=== PATIENT | female | born 1950 | race Caucasian/White ===

== ENCOUNTER 2018-11-18 10:28 | Outpatient (CLI) | payer MEDICARE ==
--- NOTE | 2018-11-18 11:26 | MMO ---
Bilateral MAMMO Bilat Screen [facility]. CLINICAL HISTORY: Patient is 68 years old and is seen for screening. The patient has no family history of breast cancer. The patient has no personal history of cancer. The patient has a history of bilateral Implants in 2008 - benign, bilateral Breast reduction in 2008 - benign, bilateral Implants in 1975 - benign - replaced several times over the years. and left Excisional Biopsy - benign. VIEWS: The views performed were: bilateral craniocaudal with tomosynthesis; bilateral mediolateral oblique with tomosynthesis; and bilateral Implant displaced. FILMS COMPARED: The present examination has been compared to prior imaging studies performed at [facility] on 09/17/2012, and at [facility] on 08/07/2005 and 06/06/2009. MAMMOGRAM FINDINGS: There are scattered fibroglandular densities. There are stable benign appearing calcifications seen in both breasts. There are no suspicious masses, suspicious calcifications, or new areas of architectural distortion. IMPRESSION: THERE IS NO MAMMOGRAPHIC EVIDENCE OF MALIGNANCY. A ROUTINE FOLLOW-UP MAMMOGRAM IN 1 YEAR IS RECOMMENDED. THE RESULTS OF THIS EXAM WERE SENT TO THE PATIENT. ACR BI-RADS Category 2 - Benign finding MAMMOGRAPHY NOTE: 1. A negative mammogram report should not delay a biopsy if a dominant of clinically suspicious mass is present. 2. Approximately 10% to 15% of breast cancers are not detected by mammography. 3. Adenosis and dense breasts may obscure an underlying neoplasm.
--- NOTE | 2018-11-18 11:45 | BD ---
DEXA BONE DENSITY EXAM: COMPARISON: 02/03/2017. HISTORY: A 68-year-old postmenopausal female for screening. FINDINGS: Lumbar Spine: BMD (g/cm2) L1 0.899 T-Score: -0.8 L2 0.924 T-Score: -0.9 L3 1.216 T-Score: 1.2 L4 1.403 T-Score: 3.1 L1-L4 1.095 T-Score: 0.4 Femoral Neck: 0.713 T-Score: -1.2 Total Femur: 0.831 T-Score: -0.9 Impression: Osteopenia. The patient has a 10-year WHO fracture risk of a major osteoporotic fracture of 7.9% and of a hip fracture of 0.8%. POS: ELOY
== END 2018-11-18 10:29 | disposition home or self-care (01) ==
LOC: BICMAMMO 10:28
DX: Z12.31 Encounter for screening mammogram for malignant neoplasm of breast (principal); Z78.0 Asymptomatic menopausal state; Z13.820 Encounter for screening for osteoporosis; M85.859 Other specified disorders of bone density and structure, unspecified thigh; Z98.82 Breast implant status
CPT/HCPCS: 77063; 77067; 77080